=== PATIENT | female | born 1960 | race Caucasian/White ===

== ENCOUNTER 2020-08-21 17:15 | Outpatient (CLI) | payer SELFPAY | END 2020-08-21 17:16 | disposition left against medical advice (07) | LOC: EMS 17:15 | DX: H53.9 Unspecified visual disturbance (principal); R51.9 Headache, unspecified; M54.2 Cervicalgia ==

== ENCOUNTER 2020-09-21 | Outpatient (CLI) | payer MEDICAID | END 2020-09-21 19:57 | disposition EMS.NT | DX: R00.2 Palpitations (principal) ==

== ENCOUNTER 2020-09-25 02:35 | Outpatient (CLI) | payer MEDICAID | END 2020-09-25 02:36 | disposition EMS.NT | LOC: EMS 02:35 | DX: R06.00 Dyspnea, unspecified (principal); F41.9 Anxiety disorder, unspecified ==

== ENCOUNTER 2020-10-09 | Outpatient (CLI) | payer MEDICAID | END 2020-10-09 11:40 | disposition EMS.NT | DX: R55 Syncope and collapse (principal) ==

== ENCOUNTER 2021-01-04 13:30 | Outpatient (CLI) | payer MEDICAID | END 2021-01-04 13:31 | disposition critical access hospital (66) | LOC: EMS 13:30 | DX: R06.02 Shortness of breath (principal); R42 Dizziness and giddiness | CPT/HCPCS: A0425; A0427; A0999 ==

== ENCOUNTER 2021-01-04 14:36 | Observation (INO) | payer MEDICAID ==
[2021-01-04] MEDS ORDERED: diltiaZEM INJ 5 MG/ML VIAL IVP STA (15:08)
[2021-01-04 15:18] LABS: EOSINOPHILS % (AUTO) 2.2 %; LYMPHOCYTES # (AUTO) 0.7 10^3/uL (1.5-3.5); LYMPHOCYTES % (AUTO) 39.1 %; MEAN CORPUSCULAR HEMOGLOBIN 34.2 pg (27.0-31.0); MEAN CORPUSCULAR HGB CONC 37.7 g/dL (32.0-36.0); MEAN CORPUSCULAR VOLUME 90.8 fL (81.0-99.0); MEAN PLATELET VOLUME 11.7 fL (7.9-10.8); MONOCYTES # (AUTO) 0.3 10^3/uL (0.0-1.0); MONOCYTES % (AUTO) 14.1 %; NEUTROPHILS # (AUTO) 0.8 10^3/uL (1.5-6.6); NEUTROPHILS % (AUTO) 44.6 %; PLT - PLATELET COUNT 132 10^3/uL (130-450); RED BLOOD COUNT 1.84 10^6/uL (4.20-5.40)
[2021-01-04 15:21] LABS: HCT - HEMATOCRIT 16.7 % (37.0-47.0); WHITE BLOOD COUNT 1.8 x10^3/uL (4.8-10.8)
[2021-01-04 15:24] LABS: HGB - HEMOGLOBIN 6.3 g/dL (12.0-16.0)
--- NOTE | 2021-01-04 15:32 | ED Physician Documentation ---
History of Present Illness - Stated complaint Stated Complaint: SOA - Chief complaint Chief Complaint: Cardiac - Additonal information Additional information: 60-year-old female presents to the emergency department for evaluation of dyspnea, chest pain concerns that her atrial fibrillation is out of control. She has an unfortunate history of a glioblastoma s/p craniotomy in August 2020. She had been undergoing chemotherapy and radiation which was stopped in early November 2020. She has been pancytopenic since early november but developed neuropenia last week. She reports that her oncologist has ordered Neupogen which will be delivered to her home tomorrow for her to start taking. Over the last few days that she has had a very low-grade temperature elevation of 99.1. She feels short of breath with exertion. she does endorse near syncope last week when walking. She denies any cough, abdominal pain vomiting diarrhea or dysuria. Due to the pancytopenia she is on 3 times weekly Bactrim. denies melena or hematochezia She does have a longstanding history of atrial fibrillation for the last 25 years. She takes a daily aspirin. Saw her coater helper last week and he did not recommend systemic anticoagulation. She is not anticoagulated otherwise. She is on diltiazem 30 mg twice daily for rate control. No history of stroke. pmh: atrial fibrillation, anxiety, glioblastoma s/p resection august 2020 Oncology MD: Dr. Christian castro ([facility]) Cardiology: Dr. Maya with [facility] [employer] systems Review of Systems Constitutional: denies: Fever, Chills Eyes: reports: Reviewed and negative Ears: reports: Reviewed and negative Nose: reports: Reviewed and negative Cardiac: reports: Chest pain / pressure, Palpitations. denies: Pedal edema, Calf pain Respiratory: reports: Dyspnea. denies: Cough, Hemoptysis, Wheezing GI: denies: Abdominal Pain, Nausea, Vomiting : denies: Dysuria, Frequency, Hesitancy Skin: denies: Rash, Lesions, Abrasion (s) Musculoskeletal: denies: Neck pain, Back pain Neurologic: denies: Generalized weakness PD PAST MEDICAL HISTORY - Present Medications Home Medications: Ambulatory Orders Medication Instructions Recorded Confirmed Acyclovir 400 mg PO BID 01/04/21 LORazepam [Ativan] 0.5 mg PO DAILY PRN 01/04/21 Metoclopramide [Reglan] 10 mg PO Q6H PRN 01/04/21 Sulfamethox/Trimeth 800/160 1 tab PO MOWEFR 01/04/21 [Bactrim Ds] diltiaZEM [Cardizem] 30 mg PO QID 01/04/21 lamoTRIgine [LaMICtal] 200 mg PO DAILY 01/04/21 - Allergies Allergies/Adverse Reactions: Allergies Allergy/AdvReac Type Severity Reaction Status Date / Time codeine Allergy Unknown Verified 01/04/21 14:48 PD ED PE EXPANDED - General General: Alert, No acute distress - Neck Neck: Supple w/out meningeal sx. No: Adenopathy - Cardiac Cardiac: Irregularly irregular, Radial strong equal, Pedal strong equal, Cap refill < 2 sec. No: Murmur Present - Respiratory Respiratory: Clear to ausultation radha. No: Distress, Labored - Abdomen Abdomen: Normal Bowel sounds. No: Tender to palpation - Derm Derm: Normal color, Warm and dry. No: Rash - Neuro Neuro: Alert and Oriented X 3, CNII-XII intact - GCS Eye Opening: Spontaneous Motor: Obeys Commands Verbal: Oriented Total: 15 Results - Vitals Vitals: Vital Signs - 24 hr 01/04/21 01/04/21 01/04/21 14:48 15:00 15:40 Temperature 36.6 C Heart Rate 122 H 123 H 101 H Respiratory 16 20 23 Rate Blood Pressure 114/76 110/94 H 120/63 O2 Saturation 100 100 97 01/04/21 16:00 Temperature Heart Rate 122 H Respiratory 21 Rate Blood Pressure 108/75 O2 Saturation 100 Oxygen O2 Source Room air - EKG (time done) 1441 Rate: Rate (enter#) (103) Rhythm: Atrial fibrillation Intervals: Prolonged QT QRS: Normal, Low voltage Ischemia: Normal ST segments Compare to prior EKG: Old EKG unavailable Computer interpretation: Agree with computer - Labs Labs: Laboratory Tests 01/04/21 01/04/21 01/04/21 15:00 15:00 15:00 WBC 1.8 L* RBC 1.84 L Hgb 6.3 L* Hct 16.7 L* MCV 90.8 MCH 34.2 H MCHC 37.7 H RDW 12.0 Plt Count 132 MPV 11.7 H Neut # (Auto) 0.8 L Lymph # (Auto) 0.7 L [place] # (Auto) 0.3 Eos # (Auto) 0.0 Baso # (Auto) 0.0 Absolute Nucleated RBC 0.00 Band Neuts % (Manual) Not Reportable Abnorm Lymph % (Manual) Not Reportable Nucleated RBC % 0.0 Neutrophils # (Manual) Not Reportable Lymphocytes # (Manual) Not Reportable Monocytes # (Manual) Not Reportable Eosinophils # (Manual) Not Reportable Basophils # (Manual) Not Reportable Differential Comment MANUAL=AUTO DIFF Platelet Morphology NORMAL APPEARANCE RBC Morph Micro Appear 2+ HYPOCHROMASIA Sodium 139 Potassium 4.0 Chloride 106 Carbon Dioxide 22 Anion Gap 11.0 BUN 18 Creatinine 0.9 Estimated GFR (MDRD) 64 L Glucose 108 H Lactic Acid Calcium 8.7 Total Bilirubin 1.0 AST 40 ALT 82 H Alkaline Phosphatase 62 Troponin I High Sens < 2.3 L Total Protein 6.7 Albumin 3.7 Globulin 3.0 Albumin/Globulin Ratio 1.2 Lipase 51 TSH Urine Color Urine Clarity Urine pH Ur Specific Carnegie Urine Protein Urine Glucose (UA) Urine Ketones Urine Occult Blood Urine Nitrite Urine Bilirubin Urine Urobilinogen Ur Leukocyte Esterase Urine RBC Urine WBC Ur Squamous Epith Cells Urine Bacteria Urine Culture Comments Blood Type Antibody Screen Crossmatch IS Only 01/04/21 01/04/21 01/04/21 15:00 15:00 15:00 WBC RBC Hgb Hct MCV MCH MCHC RDW Plt Count MPV Neut # (Auto) Lymph # (Auto) [place] # (Auto) Eos # (Auto) Baso # (Auto) Absolute Nucleated RBC Band Neuts % (Manual) Abnorm Lymph % (Manual) Nucleated RBC % Neutrophils # (Manual) Lymphocytes # (Manual) Monocytes # (Manual) Eosinophils # (Manual) Basophils # (Manual) Differential Comment Platelet Morphology RBC Morph Micro Appear Sodium Potassium Chloride Carbon Dioxide Anion Gap BUN Creatinine Estimated GFR (MDRD) Glucose Lactic Acid 1.1 Calcium Total Bilirubin AST ALT Alkaline Phosphatase Troponin I High Sens Total Protein Albumin Globulin Albumin/Globulin Ratio Lipase TSH 0.82 Urine Color Urine Clarity Urine pH Ur Specific Carnegie Urine Protein Urine Glucose (UA) Urine Ketones Urine Occult Blood Urine Nitrite Urine Bilirubin Urine Urobilinogen Ur Leukocyte Esterase Urine RBC Urine WBC Ur Squamous Epith Cells Urine Bacteria Urine Culture Comments Blood Type B POSITIVE Antibody Screen NEGATIVE Crossmatch IS Only See Detail 01/04/21 15:37 WBC RBC Hgb Hct MCV MCH MCHC RDW Plt Count MPV Neut # (Auto) Lymph # (Auto) [place] # (Auto) Eos # (Auto) Baso # (Auto) Absolute Nucleated RBC Band Neuts % (Manual) Abnorm Lymph % (Manual) Nucleated RBC % Neutrophils # (Manual) Lymphocytes # (Manual) Monocytes # (Manual) Eosinophils # (Manual) Basophils # (Manual) Differential Comment Platelet Morphology RBC Morph Micro Appear Sodium Potassium Chloride Carbon Dioxide Anion Gap BUN Creatinine Estimated GFR (MDRD) Glucose Lactic Acid Calcium Total Bilirubin AST ALT Alkaline Phosphatase Troponin I High Sens Total Protein Albumin Globulin Albumin/Globulin Ratio Lipase TSH Urine Color YELLOW Urine Clarity CLEAR Urine pH 5.5 Ur Specific Carnegie 1.020 Urine Protein NEGATIVE Urine Glucose (UA) NEGATIVE Urine Ketones NEGATIVE Urine Occult Blood NEGATIVE Urine Nitrite NEGATIVE Urine Bilirubin NEGATIVE Urine Urobilinogen 0.2 (NORMAL) Ur Leukocyte Esterase NEGATIVE Urine RBC 0-5 Urine WBC 0-3 Ur Squamous Epith Cells RARE Squamous Urine Bacteria None Seen Urine Culture Comments NOT INDICATED Blood Type Antibody Screen Crossmatch IS Only - Rads (name of study) CXR Radiology: Final report received (No acute cardiopulmonary process) PD MEDICAL DECISION MAKING - ED course Complexity details: reviewed results, re-evaluated patient, d/w patient ED course: 60-year-old female who has a history of atrial fibrillation rate controlled typically on diltiazem presents to the emergency department with increasing exertional dyspnea and near syncope over the last week. This is in the setting of a history of recently diagnosed glioblastoma status post resection chemotherapy and radiation. She is pancytopenic with a wbc of 1.8 Her oncologist has ordered Neupogen to be delivered to her house tomorrow which she will self inject. Today on presentation she has atrial fibrillation with a rate that goes into the 130s and 140s with exertion. High sensitivity trop today is negative. Initially given diltiazem here in the ED for her HR in the 130 which dropped it to the 110's. Screening labs do show a persistent anemia with a hemoglobin of 6.3 and wbc of 1.8. I did discuss this case with her oncology office. They recommended that we proceed with the blood cultures and requested 1 unit PRBC infusion. I have discussed the risks and benefits of blood transfusion with the patient and she agrees to proceed. Consent signed Given the symptomatic anemia and near syncope patient was presented to [facility] for observation admit and completion of the red blood cell infusion. Departure - Departure Disposition: ED Place in Observation Clinical Impression: Pancytopenia, acquired, Signs and symptoms of anemia Atrial fibrillation Qualifiers: Atrial fibrillation type: longstanding persistent Qualified Code(s): I48.11 - Longstanding persistent atrial fibrillation Neutropenia Qualifiers: Neutropenia type: unspecified Qualified Code(s): D70.9 - Neutropenia, unspecified
[2021-01-04 15:40] LABS: ALBUMIN 3.7 g/dL (3.2-5.5); ALBUMIN/GLOBULIN RATIO 1.2 (1.0-2.2); CALCIUM 8.7 mg/dL (8.5-10.3); CREATININE 0.9 mg/dL (0.4-1.0); TOTAL PROTEIN 6.7 g/dL (6.7-8.2)
[2021-01-04 15:46] LABS: BILIRUBIN,URINE NEGATIVE (NEGATIVE); GLUCOSE, URINE (UA) NEGATIVE (NEGATIVE); KETONES,URINE (UA) NEGATIVE (NEGATIVE); LEUKOCYTE ESTERASE, URINE NEGATIVE (NEGATIVE); NITRITE,URINE NEGATIVE (NEGATIVE); OCCULT BLOOD,URINE NEGATIVE (NEGATIVE); PH,URINE 5.5 PH (5.0-7.5); PROTEIN,URINE NEGATIVE (NEGATIVE); UROBILINOGEN,URINE 0.2 (NORMAL) E.U./dL (NORMAL)
[2021-01-04 15:51] LABS: CLARITY,URINE CLEAR (CLEAR); WBC,URINE 0-3 /HPF (0-5)
[2021-01-04 15:52] LABS: BACTERIA,URINE None Seen /HPF (None Seen); RBC,URINE 0-5 /HPF (0-5); SQUAMOUS EPITHELIAL CELL,UR RARE Squamous (<= Few)
[2021-01-04] MEDS ORDERED: ONDANSETRON ODT 4 MG TABLET TL PRN (16:03)
[2021-01-04] MEDS ORDERED: ONDANSETRON 4 MG/2 ML VIAL IVP PRN (16:03)
[2021-01-04] MEDS ORDERED: ACETAMINOPHEN 325 MG TABLET PO PRN (16:03)
[2021-01-04] MEDS ORDERED: SODIUM CHLORIDE FLUSH 0.9% 10 ML SYRINGE IVP PRN (16:03)
[2021-01-04] MEDS ORDERED: oxyCODONE 5 MG TABLET PO PRN (16:03)
--- NOTE | 2021-01-04 16:07 | XRAY Report ---
PROCEDURE: Chest 1 View X-Ray INDICATIONS: Chest Pain TECHNIQUE: One view of the chest was acquired. COMPARISON: FINDINGS: Surgical changes and devices: None. Lungs and pleura: No pleural effusions or pneumothorax. Lungs are clear. Mediastinum: Mediastinal contours appear normal. Heart size is normal. Bones and chest wall: No suspicious bony lesions. Overlying soft tissues appear unremarkable. IMPRESSION: Normal for age, source of current symptoms is not found. Reviewed by: Lance Espinal MD on 01/04/2021 4:05 PM PDT Approved by: Lance Espinal MD on 01/04/2021 4:05 PM PDT Station ID: [id number]
--- NOTE | 2021-01-04 16:09 | HISTORY & PHYSICAL EXAMINATION ---
Chief Complaint - Chief Complaint Chief Complaint: shortness of breath and fast heart rate History of Present Illness - Admitted From Admitted From:: home - History Obtained From Records Reviewed: [facility] History obtained from: Eric HINES and patient Exam Limitations: none - History of Present Illness HPI Comment/Other: This is an unfortunate 60-year-old female who has a glioblastoma and is undergoing therapy. She is already had a craniotomy in August of this year and is being treated by Dr. Bhatia at [facility] with chemotherapy and radiation. That was completed November 2020. She also has a history of chronic atrial fibrillation and anxiety. Her section leader is Dr. Maya with [employer]. She developed low cell counts in November and she is supposed to start Neupogen starting tomorrow. But in the last few days she has been exhausted, fatigued, but denies fever and chills. However temperature has been 99.1 at times. Poor appetite. Any limited exertion causes her to feel exhausted and short of breath. She denies any sore throat, eustachian tube dysfunction, cough, chest congestion. She has had no change in abdominal status. There is been no change in her bowels. There is no urgency of urine. No frequency. No dysuria. She has noticed that her heart rate is getting faster and faster. Her section leader put a monitor on her. She says she has been pushing the button numerous times a day to download the data to his office and has not found out what is going on. She has some chest pressure that is a 2 out of a 10 with this. Over the central part of her chest. Nonradiating. No nausea or diaphoresis with this.It gets fast and then will not slow down when she stops activity. She came to the emergency room with the feeling of a fast heart rate, the shortness of breath with exertion. She is very anxious. Tearful. Keeps on asking for reassurance that "I am not going to ". She keeps on asking about the overall prognosis, treatment, and response rate for glioblastoma. She feels like she is lost in the system and no one is answering her questions in a concrete way. When she has expressed this fear to her oncology office and asked them "am I going to ", the responses "were all going to ". She was seen by DONNY Reyes. Temperature was 36.6. Heart rate 122. Respirations 16 blood pressure 114/76 with an O2 sat of 100. She was an alert oriented female who had no meningeal signs. Clear lungs. A benign abdomen. She had a fast irregularly irregular heart rate. White cell count was 1.8. Hemoglobin 6.3. Hematocrit 16.7. CMP was normal. Troponin was normal. Plan is to place her in observation. Transfuser. Hopefully she will be above 7 to then be able to be discharged home. 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 Mom at 69 of CHF. 3 brothers. Oldest brother had a heart attack. Middle brother is healthy. Youngest brother of a heart attack. She does not have any children Living arrangement: At home Living Situation: With spouse/s.o. Social History Notes: She is from [place]. Grew up there. She says that she had a great life. Worked for a [employer] for 20 years and was "living the dream". Covid happened and she lost her job in November 2019. She has been 4-1/2 years and still considers of the newlywed. She and her moved to [facility] and he works at [employer]. She smoked 1 or 2 cigarettes when she was very young but never smoked on a regular basis. She has no history of alcohol or recreational substance abuse. - Substance History Use: Uses substance without health or social issues: NONE Abuse: Recurrent use of substance despite neg consequences: NONE Dependence: Experiences withdrawal or developed tolerances: NONE Meds/Allgy - Home Medications Home Medications: Ambulatory Orders Medication Instructions Recorded Confirmed Aspirin [Aspirin EC] 81 mg PO DAILY 01/04/21 01/04/21 LORazepam [Ativan] 0.5 mg PO DAILY PRN 01/04/21 01/04/21 Sulfamethox/Trimeth 800/160 1 tab PO MOWEFR 01/04/21 01/04/21 [Bactrim Ds] diltiaZEM [Cardizem] 30 mg PO QID 01/04/21 01/04/21 - Allergies Allergies/Adverse Reactions: Allergies Allergy/AdvReac Type Severity Reaction Status Date / Time codeine Allergy Unknown Verified 01/04/21 14:48 Review of Systems - Constitutional Constitutional: reports: Fatigue, Chills, Malaise, Weakness, Poor appetite - Eyes Eyes: reports: Blurred vision. denies: Pain - Ears, Nose & Throat Ears, Nose & Throat: denies: Hearing loss, Hearing aids, Tinnitus, Sore throat, Hoarseness - Cardiovascular Cariovascular: reports: Irregular heart rate, Palpitations, Chest pain, Lightheadedness, Exertional dyspnea, Decr. exercise tolerance. denies: Edema, Syncope - Respiratory Respiratory: reports: SOB with exertion. denies: Cough, Sputum production, Wheezing, Snoring, Orthopnea, SOB at rest - Gastrointestinal Gastrointestinal: denies: Abdominal pain, Abdominal distention, Constipation, Diarrhea, Rectal bleeding, Vomiting - Genitourinary Genitourinary: denies: Dysuria, Frequency, Urgency, Hematuria, Flank pain - Musculoskeletal Musculoskeletal: reports: Muscle aches. denies: Muscle pain, Back pain, Stiffness, Joint pain - Integumentary Integumentary: denies: Rash, Pruritis, Lesions - Neurological Neurological: reports: General weakness, Memory problems. denies: Focal weakness, Headache, Dizziness, Pre-existing deficit - Psychiatric Psychiatric: reports: Depression, Anxiety (She is so scared. She does not want to . She feels like this is all happening too fast.) - Endocrine Endocrine: denies: Polyuria, Polydypsia, Polyphagia - Hematologic/Lymphatic Hematologic/Lymphatic: reports: Anemia (As far she was concerned, she was told that her "blood counts look great". So being anemic is a surprise to her.). 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 She was told to be on a seizure medication for prophylactic treatment of seizures but she has never filled it because she is so tired of being on drugs and having side effects. She still able to dress herself, feed herself. 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 But almost everything is been taken over by her because she is so overwhelmed, tearful, and anxious. Exam - Vital Signs Reviewed Vital Signs: Yes Vital Signs: Vital Signs x48h Temp Pulse Resp BP Pulse Ox 01/04/21 15:40 101 H 23 120/63 97 01/04/21 15:00 123 H 20 110/94 H 100 01/04/21 14:48 36.6 C 122 H 16 114/76 100 - Physical Exam General Appearance: positive: No acute distress, Alert, Moderate distress ( Very tearful. Fast, pressured speech. Repetitive questions.), Other (Pale, fatigued appearing 5 foot 5 inch female who weighs 70 kg) Eyes Bilateral: positive: PERRL, EOMI. negative: Conjunctivae nml (Pale) ENT: positive: Dry mucous membranes Neck: positive: No JVD. negative: Stiff neck, Carotid bruit, Swelling/bruising Respiratory: positive: No respiratory distress. negative: Wheezes, Rales, Rhonchi Cardiovascular: positive: Irregularly irregular, Tachycardia, Systolic murmur. negative: Gallop/S4, Friction rub Peripheral Pulses: positive: 1+ Abdomen: positive: Non-tender, No organomegaly, Nml bowel sounds, No distention Skin: positive: Warm, Dry, Pallor Extremities: positive: Full ROM, Pedal edema Neurologic/Psychiatric: positive: Oriented x3, CN's nml (2-12), Motor nml, Sensation nml Conclusion/Plan - Problem List (1) Dyspnea on minimal exertion Conclusion/Plan: Due to rapid atrial fibrillation and her anemia. Plan: Observation status requested for completion of her transfusion. Control her heart rate check troponin (2) Anemia due to chemotherapy Conclusion/Plan: Transfusion. She is worried that the transfusion will not let her get Neupogen. But I reassured her that Start Neupogen tomorrow. (3) Atrial fibrillation with rapid ventricular response Conclusion/Plan: She is not a candidate for anticoagulation. At this point in time aiming for rate control. Hopefully when she has received IV fluids, transfusion, the stress on her heart lung pump will be less and her dyspnea and exertion will improve. She took her own Cardizem pill at 1900. She takes 30 mg every 8 hours. I have asked her not to take pills out of her purse. She tells me that the pharmacist here, Avel Galloway, is her best friend and he would not mind. I gently asked her not to do it because I mind. So I will order her Cardizem through the pharmacy. (4) Anxiety about dying Conclusion/Plan: Moderate anxiety. In the time she was talking about her fears of blood transfusion, dying, the atrial fibrillation there is rapidfire speech. Increasing tachypnea. Increasing chest pressure. I had to ask her to please stop talking, take a deep breath, calm herself and she felt much better. She is on a benzodiazepine of Ativan half a milligram daily. Will order half a milligram at night and tomorrow morning. - Lab Results Lab results reviewed: Yes Fish Bones: 01/04/21 15:00 01/04/21 15:00 - EKG Results EKG Interpreted Independently: No EKG Comparison: No prior EKG Core Measures - Anticipated LOS I expect patient to be DC'd or transferred within 96 hours.: Yes - DVT/VTE - Prophylaxis VTE/DVT Device ordered at admit?: Yes
[2021-01-04 17:01] LABS: PLATELET MORPHOLOGY NORMAL APPEARANCE (NORMAL)
[2021-01-04 17:05] LABS: DIFFERENTIAL COMMENT MANUAL=AUTO DIFF
--- NOTE | 2021-01-04 17:44 | PHARMACY PROGRESS NOTE ---
- Best Possible Medication History Admit Date and Time: 01/04/21 1605 Processed by: Pharmacy Medication History completed: Yes Patient Interview: Completed Secondary Source(s): Written medication list, Physician records, Pharmacy records, Insurance records (PATIENT ABLE TO CONFIRM HOME MEDICATIONS. PATIENT REPORTS SHE HAS NOT STARTED ON ATIVAN OR LAMICTAL. ) As the person ultimately responsible for medication therapy, providers are able to order a medication from an existing home medication list in [facility] via the "Reconcile Routine" prior to Confirmation of that medication by legal support manager. Such practice is discouraged except when the physician, in their clinical judgment, deems that a medical need exists for a medication without regard to previous use.
[2021-01-04 17:48] LABS: B. PARAPERTUSSIS- RESP PCR PAN NOT DETECTED; B. PERTUSSIS- RESP PCR PANEL NOT DETECTED; C. PNEUMONIAE- RESP PCR PANEL NOT DETECTED; CORONAVIRUS 229E-RESP PCR NOT DETECTED; CORONAVIRUS HKU1-RESP PCR NOT DETECTED; CORONAVIRUS NL63-RESP PCR NOT DETECTED; CORONAVIRUS OC43-RESP PCR NOT DETECTED; HUMAN METAPNEUMOVIRUS NOT DETECTED; INFLUENZA A- RESP PCR PANEL NOT DETECTED; INFLUENZA B - RESP PCR PANEL NOT DETECTED; M. PNEUMONIAE- RESP PCR PANEL NOT DETECTED; PARAINFLUENZA VIRUS 1 NOT DETECTED; PARAINFLUENZA VIRUS 2 NOT DETECTED; PARAINFLUENZA VIRUS 3 NOT DETECTED; PARAINFLUENZA VIRUS 4 NOT DETECTED; RHINOVIRUS/ENTEROVIRUS NOT DETECTED; RSV- RESP PCR PANEL NOT DETECTED; SARS-CoV-2 -RESP PCR PANEL NOT DETECTED
[2021-01-04] MEDS: SODIUM CHLORIDE FLUSH 0.9% 10 ML SYRINGE IVP SCH ×2 (18:59→23:57)
[2021-01-04] MEDS ORDERED: LORazepam 0.5 MG TABLET PO PRN (19:11)
[2021-01-04] MEDS ORDERED: SULFAMETH/TRIMETH DS 800/160 MG TABLET PO STA (21:27)
[2021-01-04] MEDS ORDERED: NON FORMULARY MED PO SCH (22:00)
[2021-01-04] MEDS ORDERED: DILTIAZEM 30 MG PO PRN (23:50)
[2021-01-05 00:20] LABS: HCT - HEMATOCRIT 21.9 % (37.0-47.0); MEAN CORPUSCULAR HEMOGLOBIN 32.4 pg (27.0-31.0); MEAN CORPUSCULAR HGB CONC 36.5 g/dL (32.0-36.0); MEAN CORPUSCULAR VOLUME 88.7 fL (81.0-99.0); RED BLOOD COUNT 2.47 10^6/uL (4.20-5.40); RED CELL DISTRIBUTION WIDTH 13.2 % (12.0-15.0)
[2021-01-05 05:23] LABS: EOSINOPHILS % (AUTO) 3.9 %; HCT - HEMATOCRIT 21.2 % (37.0-47.0); HGB - HEMOGLOBIN 7.8 g/dL (12.0-16.0); LYMPHOCYTES % (AUTO) 36.8 %; MEAN CORPUSCULAR HEMOGLOBIN 32.5 pg (27.0-31.0); MEAN CORPUSCULAR HGB CONC 36.8 g/dL (32.0-36.0); MEAN CORPUSCULAR VOLUME 88.3 fL (81.0-99.0); MEAN PLATELET VOLUME 11.1 fL (7.9-10.8); MONOCYTES % (AUTO) 14.2 %; NEUTROPHILS % (AUTO) 44.5 %; PLT - PLATELET COUNT 130 10^3/uL (130-450); RED CELL DISTRIBUTION WIDTH 13.6 % (12.0-15.0)
[2021-01-05 05:32] LABS: WHITE BLOOD COUNT 1.6 x10^3/uL (4.8-10.8)
[2021-01-05 05:33] LABS: ABNORMAL LYMPHS % (MANUAL) 0 %
[2021-01-05 05:55] LABS: BAND NEUTROPHILS % (MANUAL) 1 %; DIFFERENTIAL COMMENT MANUAL DIFFERENTIAL; LYMPHOCYTES # (MANUAL) 0.8 10^3/uL (1.5-3.5); LYMPHOCYTES % (MANUAL) 48 %; NEUTROPHILS # (MANUAL) 0.8 10^3/uL (1.5-6.6); PLATELET ESTIMATE, MANUAL NORMAL (130-450,000) (NORMAL); RBC MORPHOLOGY (MULTIPLE) NORMAL APPEARANCE (NORMAL)
--- NOTE | 2021-01-05 08:54 | Discharge Plan ---
Discharge Plan Problem Reviewed?: Yes Disposition: Home, Self Care Condition: Fair Diet: Regular Activity Restrictions: Activity as Tolerated Shower Restrictions: No Driving Restrictions: Yes (no driving until takes seizure meds regularly) Health Concerns: You were admitted into the hospital because of a very fast heart rate that was scaring you tremendously. We found you to have your chronic atrial fibrillation. Your rate was sometimes up over 100 but never dangerously high. However, subjectively, you felt that is a very fast heart rate given your chest pressure. In evaluating why your atrial fibrillation could be uncontrolled, we found you to have anemia induced from your chemotherapy. A normal amount of blood in a woman is about 12 g of hemoglobin. You came in at 6.3. We transfused you 1 unit of blood and her hemoglobin has gone up to 7.88.0. You are supposed to start Neupogen today. Neupogen affects only your white cell count. Your white cell count is 1.8-2.0. Normal white cell count is 4.8. So you are low. You and your oncologist will discuss if you want to take your Neupogen or not. Plan of Treatment: 1. Get regularly scheduled lab work and review with you. If you drop below 7 g of hemoglobin you are a candidate for transfusion. Follow-up with your oncologist about whether you are going to get Neupogen or not Care Goals: Your fiercest and greatest goal is to survive glioblastoma. We wish you all the best with this. You have asked us to keep you in your prayers and we well. Assessment: Patient will follow through with her oncologist for further care. No Smoking: If you smoke, Please STOP! Call for help. Follow-up with: Jose Wilder MD [Primary Care Provider] -
--- NOTE | 2021-01-05 09:03 | DISCHARGE SUMMARY ---
Discharge Summary Admit Date: 01/04/21 Discharge Date: 01/05/21 Discharging Provider: Idalmis Dahl MD Primary Care Provider: Talat Wilder MD Code Status: Attempt Resuscitation Condition at Discharge: Fair Discharge Disposition: 01 Home, Self Care - DIAGNOSES Discharge Diagnoses with Status of Each Condition: 1. Dyspnea on minimal exertion 2. Anemia due to chemotherapy 3. Atrial fibrillation with RVR 4. Anxiety about dying, severe - HPI History of Present Illness: This is an unfortunate 60-year-old female who has a glioblastoma and is undergoing therapy. She is already had a craniotomy in August of this year and is being treated by Dr. Bhatia at [facility] with chemotherapy and radiation. That was completed November 2020. She also has a history of chronic atrial fibrillation and anxiety. Her solar sales assessor is Dr. Maya with [facility]. She developed low cell counts in November and she is supposed to start Neupogen starting tomorrow. But in the last few days she has been exhausted, fatigued, but denies fever and chills. However temperature has been 99.1 at times. Poor appetite. Any limited exertion causes her to feel exhausted and short of breath. She denies any sore throat, eustachian tube dysfunction, cough, chest congestion. She has had no change in abdominal status. There is been no change in her bowels. There is no urgency of urine. No frequency. No dysuria. She has noticed that her heart rate is getting faster and faster. Her solar sales assessor put a monitor on her. She says she has been pushing the button numerous times a day to download the data to his office and has not found out what is going on. She has some chest pressure that is a 2 out of a 10 with this. Over the central part of her chest. Nonradiating. No nausea or diaphoresis with this.It gets fast and then will not slow down when she stops activity. She came to the emergency room with the feeling of a fast heart rate, the shortness of breath with exertion. She is very anxious. Tearful. Keeps on asking for reassurance that "I am not going to ". She keeps on asking about the overall prognosis, treatment, and response rate for glioblastoma. She feels like she is lost in the system and no one is answering her questions in a concrete way. When she has expressed this fear to her oncology office and asked them "am I going to ", the responses "were all going to ". She was seen by DONNY Reyes. Temperature was 36.6. Heart rate 122. Respirations 16 blood pressure 114/76 with an O2 sat of 100. She was an alert oriented female who had no meningeal signs. Clear lungs. A benign abdomen. She had a fast irregularly irregular heart rate. White cell count was 1.8. Hemoglobin 6.3. Hematocrit 16.7. CMP was normal. Troponin was normal. Plan is to place her in observation. Transfuser. Hopefully she will be above 7 to then be able to be discharged home. - Past Medical History Cardiovascular: reports: Atrial fibrillation Respiratory: reports: None Neuro: reports: Other (Glioblastoma multiform a, craniotomy, chemo, radiation.) Endocrine/Autoimmune: reports: None GI: reports: None FILLER FEEDER: reports: Other () : reports: None HEENT: reports: None Psych: reports: Depression, Anxiety Musculoskeletal: reports: None Derm: reports: None MRSA Hx?: No - Past Surgical History Neuro: reports: Craniotomy - CONSULTS | PROCEDURES Procedures: Chest x-ray is normal for age, no acute cardiopulmonary process Transfusion of 1 unit of packed cells - HOSPITAL COURSE Hospital Course: Patient required quite a bit of emotional support. Severe anxiety with fast, pressured speech. Repetitive questions. And her anxiety and fear she would forget the answers and we asked the questions a few minutes later. Her biggest fear is dying. She keeps on wanting to be reassured that she is not going to di e of the glioblastoma or its recurrence. She is already seeing a counselor. She reluctantly admits that she tries to call him but does not really follow through on his advice. She is also going to be seeking a second opinion with [facility] as she is hoping to find any treatment plan that might prolong her life. She tolerated 1 unit of blood well. She kept on complaining of atrial fibrillation. We reminded her that her atrial fibrillation was a chronic condition, not new. In seeking reassurance, she repetitively requested telemetry monitoring. As such telemetry monitoring was done and showed only atrial fibrillation with his highest heart rate being 108. She is discharged in stable condition. Temperature is 36.7. Heart rate is 81- 101. Pressure 113/74. Respirations 16. 100% on room air. She is 5 foot 5 inches tall and weighs 70 kg. Still very anxious woman on the morning of discharge. She asked about the Neupogen. She receives it today. Wants to know that it is not contraindicated in someone who has anemia. I told her it was not. She then tells me that her neuro oncologist stated that she does not have to take this drug. I explained that that is going to be between her and the neuro oncologist and not up to us. Lungs are clear. Irregular rate and rhythm. Abdomen soft. No respiratory distress. Moderate emotional distress. There were approximately 5 more conversations had with this patient between decision to discharge and discharge. She is still very anxious about her atrial fibrillation, sense of palpitations, and orthostatic dizziness. She began having tachypnea and sense of impending doom with heavy chest pain and shortness of breath. Pulse was 98 with this and BP 110/68. No diaphresis. Tearful. She received a 500 cc bolus of fluids because her blood pressure was 95/62 laying down. 103/54 sitting. 79/50 standing. Heart rate went from 94-124 with this. After the bolus she felt much better. On the basis of the orthostatic hypotension and subjective sense of tachycardia, I did offer her 1 more unit of blood. She brought her on the phone. Options discussed: 1. Keep her another day and type and cross/transfuse her for another unit of blood 2. Type and cross her today. Bring her back tomorrow for an elective transfusion of blood through the medical ambulatory clinic. 3. No transfusion. Take vitamins. Take her Neupogen. And see if over time her anemia gradually improved without needing more transfusion. 4. If she is discharged home without a transfusion, she can always return to the emergency room if her sense of orthostatic dizziness, tachycardia, and anxiety are so severe that she needs to come back for evaluation. Of all of these options, she wanted to go for option #3. Her endorsed that decision. We have asked her to see her PCP to discuss future transfusions by option #2. To please see her solar sales assessor for rate control options. To resume her ASA and to take her Neupogen per her [place] instructions. Dariana left a message for Dr. Talat Wilder to give me a call @ [phone]. - ALLERGIES Allergies/Adverse Reactions: Allergies Allergy/AdvReac Type Severity Reaction Status Date / Time codeine Allergy Unknown Verified 01/04/21 14:48 - MEDICATIONS Home Medications: Ambulatory Orders Medication Instructions Recorded Confirmed Aspirin [Aspirin EC] 81 mg PO DAILY 01/04/21 01/04/21 LORazepam [Ativan] 0.5 mg PO DAILY PRN 01/04/21 01/04/21 Sulfamethox/Trimeth 800/160 1 tab PO MOWEFR 01/04/21 01/04/21 [Bactrim Ds] diltiaZEM [Cardizem] 30 mg PO QID 01/04/21 01/04/21 - LABS Result Diagrams: 01/05/21 05:10 01/04/21 15:00
[2021-01-05] MEDS ORDERED: SODIUM CHLORIDE 0.9% 500 ML IV ONE (11:14)
[2021-01-05] MEDS: SODIUM CHLORIDE FLUSH 0.9% 10 ML SYRINGE IVP SCH (11:25)
[2021-01-05 13:41] VITALS: BP 101/71
== END 2021-01-05 12:45 | disposition home or self-care (01) ==
LOC: ED 14:36 → MS2 16:03
PROVIDERS: ADMIT Specialist; ATTEND Specialist
DX: D61.810 Antineoplastic chemotherapy induced pancytopenia (principal); T45.1X5A Adverse effect of antineoplastic and immunosuppressive drugs, initial encounter; I48.11 Longstanding persistent atrial fibrillation; C71.9 Malignant neoplasm of brain, unspecified; Q04.3 Other reduction deformities of brain; F41.9 Anxiety disorder, unspecified; F32.9 Major depressive disorder, single episode, unspecified; R56.9 Unspecified convulsions; T50.996A Underdosing of other drugs, medicaments and biological substances, initial encounter; Z20.822 Contact with and (suspected) exposure to COVID-19; Z92.21 Personal history of antineoplastic chemotherapy; Z92.3 Personal history of irradiation; Z79.82 Long term (current) use of aspirin; Z79.899 Other long term (current) drug therapy
CPT/HCPCS: 0202U; 36415; 36430; 71045; 80053; 81001; 83605; 83690; 84443; 84484; 85025; 85027; 86850; 86900; 86901; 86920; 87040; 93005; 96374; 99284; 99285; A9270; G0378; P9040; 87086

== ENCOUNTER 2022-03-05 05:52 | Outpatient (CLI) | payer MEDICAID | END 2022-03-05 05:53 | disposition critical access hospital (66) | LOC: EMS 05:52 | DX: R56.9 Unspecified convulsions (principal) | CPT/HCPCS: A0425; A0427; A0999 ==

== ENCOUNTER 2022-03-05 06:08 | Emergency (ER) | payer MEDICAID ==
[2022-03-05] MEDS ORDERED: SODIUM CHLORIDE 0.9% 1,000 ML IV STA (07:00)
[2022-03-05] MEDS ORDERED: KETOROLAC 15 MG/ML VIAL IVP STA (07:00)
[2022-03-05 07:14] LABS: EOSINOPHILS % (AUTO) 0.3 %; HGB - HEMOGLOBIN 13.2 g/dL (12.0-16.0); LYMPHOCYTES # (AUTO) 0.9 10^3/uL (1.5-3.5); LYMPHOCYTES % (AUTO) 29.8 %; MEAN CORPUSCULAR HEMOGLOBIN 35.7 pg (27.0-31.0); MEAN CORPUSCULAR HGB CONC 35.7 g/dL (32.0-36.0); MEAN PLATELET VOLUME 9.7 fL (7.9-10.8); MONOCYTES # (AUTO) 0.3 10^3/uL (0.0-1.0); NEUTROPHILS # (AUTO) 1.7 10^3/uL (1.5-6.6); NEUTROPHILS % (AUTO) 58.8 %; PLT - PLATELET COUNT 156 10^3/uL (130-450); RED CELL DISTRIBUTION WIDTH 12.9 % (12.0-15.0); WHITE BLOOD COUNT 2.9 x10^3/uL (4.8-10.8)
[2022-03-05 07:21] LABS: RBC MORPHOLOGY (MULTIPLE) 1+ ANISOCYTOSIS (NORMAL); SLIDE REVIEW? Indicated
[2022-03-05 07:26] LABS: ALBUMIN/GLOBULIN RATIO 1.4 (1.0-2.2); BILIRUBIN,TOTAL 0.9 mg/dL (0.2-1.0); CALCIUM 8.9 mg/dL (8.5-10.3); CREATININE 0.7 mg/dL (0.4-1.0); MAGNESIUM 2.1 mg/dL (1.7-2.8); POTASSIUM 3.8 mmol/L (3.5-5.0); TOTAL PROTEIN 6.8 g/dL (6.7-8.2)
--- NOTE | 2022-03-05 07:30 | ED Physician Documentation ---
History of Present Illness - Stated complaint Stated Complaint: SZ, BRAIN TUMOR - Chief complaint Chief Complaint: Neuro - Additonal information Additional information: Patient is a 61-year-old female presenting with chief complaint of seizure. woke this morning to find her experiencing tonic-clonic seizure activity. Patient amnestic to events. Positive tongue biting. Negative loss of Bowel or bladder control. Past medical significant for neuro glioblastoma status post surgical excision in 2020. Procedure was performed at [facility]. Currently follows with oncology at the [facility]. Denies head trauma, loss of consciousness, use of blood thinning medications. 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: Other () : None HEENT: None Psych: Depression, Anxiety Musculoskeletal: None Derm: None - Past Surgical History Past Surgical History: Yes Neuro: Craniotomy - Present Medications Home Medications: Ambulatory Orders Medication Instructions Recorded Confirmed Aspirin [Aspirin EC] 81 mg PO DAILY 01/04/21 01/04/21 LORazepam [Ativan] 0.5 mg PO DAILY PRN 01/04/21 01/04/21 Sulfamethox/Trimeth 800/160 1 tab PO MOWEFR 01/04/21 01/04/21 [Bactrim Ds] diltiaZEM [Cardizem] 30 mg PO QID 01/04/21 01/04/21 Levetiracetam [Keppra] 1,000 mg PO BID #30 tablet 03/05/22 - Allergies Allergies/Adverse Reactions: Allergies Allergy/AdvReac Type Severity Reaction Status Date / Time codeine Allergy Unknown Verified 03/05/22 06:21 - Social History Does the pt smoke?: No Smoking Status: Never smoker PD ED PE NORMAL - General General: No acute distress, Other (Postictal confusion) - HEENT HEENT: Atraumatic, PERRL, EOMI, Ears normal, Moist mucous membranes, Pharynx benign - Neck Neck: Supple, no meningeal sign, No bony TTP, No adenopathy, No JVD, No bruit - Cardiac Cardiac: RRR, No gallop - Respiratory Respiratory: No respiratory distress, Clear bilaterally - Abdomen Abdomen: Normal bowel sounds, Non tender - Female Female : Deferred - Rectal Rectal: Deferred - Derm Derm: Normal color - Extremities Extremities: No deformity - Neuro Neuro: manager forms 2-12 intact, No motor deficit, Normal speech - Psych Psych: Normal mood Results - Vitals Vitals: Vital Signs - 24 hr 03/05/22 03/05/22 03/05/22 06:16 10:20 14:00 Temperature 36.7 C Heart Rate 115 H 90 86 Respiratory 14 12 20 Rate Blood Pressure 110/81 H 106/94 H 122/81 H O2 Saturation 99 100 100 03/05/22 16:00 Temperature Heart Rate 90 Respiratory 14 Rate Blood Pressure 124/98 H O2 Saturation 99 Oxygen O2 Source Room air - Labs Labs: Laboratory Tests 03/05/22 03/05/22 03/05/22 07:10 07:10 14:50 WBC 2.9 L RBC 3.70 L Hgb 13.2 Hct 37.0 MCV 100.0 H MCH 35.7 H MCHC 35.7 RDW 12.9 Plt Count 156 MPV 9.7 Neut # (Auto) 1.7 Lymph # (Auto) 0.9 L Loup # (Auto) 0.3 Eos # (Auto) 0.0 Baso # (Auto) 0.0 Absolute Nucleated RBC 0.00 Nucleated RBC % 0.0 Manual Slide Review Indicated RBC Morph Micro Appear 1+ ANISOCYTOSIS Sodium 139 Potassium 3.8 Chloride 103 Carbon Dioxide 29 Anion Gap 7.0 BUN 16 Creatinine 0.7 Estimated GFR (MDRD) 85 L Glucose 104 H Calcium 8.9 Magnesium 2.1 Total Bilirubin 0.9 AST 22 ALT 24 Alkaline Phosphatase 66 Total Protein 6.8 Albumin 4.0 Globulin 2.8 Albumin/Globulin Ratio 1.4 Lipase 40 SARS-CoV-2 (PCR) NOT DETECTED PD MEDICAL DECISION MAKING - ED course Complexity details: reviewed results, d/w patient, d/w family ED course: Patient 61-year-old female with known history neuro glioblastoma presenting to the emergency department after reported seizure event. On arrival to the emergency department appeared confused and disorientated but had a generally nonfocal nonlateralizing neurologic exam. Afebrile with no nuchal rigidity. Given her history did obtain a head CT which demonstrated vasogenic edema. Patient was given 10 mg dose Decadron. Follow-up MRI with and without contrast demonstrates area of ring enhancement near the right insula concerning for recurrent Neuro glioblastoma with surrounding edema. While in the emergency department patient's mental state cleared. She was reevaluated on multiple occasions and found to have no acute complaints and no focal or lateralizing neurologic deficits. Her care was discussed directly with the neurology and neuro-oncology team at the [facility]. In consultation with this service will initiate Keppra 1000 mg twice daily. Patient did report some significant sedation while on Keppra previously however after discussing options of an alternative agent she elected to try Keppra again. After discussion with the neuro-oncology team patient will be discharged for follow-up with her outpatient neuro oncologist tomorrow. Clear return precautions, seizure precautions and follow-up instructions given prior to discharge. - Consults Consults: Discussed case with (General inpatient neurology and neuro-oncology at the [facility]) Departure - Departure Disposition: 01 Home, Self Care Clinical Impression: Seizure, Brain tumor, Vasogenic edema Instructions: Epilepsy Meds, Epilepsy Safety During Seizure Prescriptions: Levetiracetam [Keppra] 1,000 mg PO BID #30 tablet Comments: Thank you for allowing us to care for you today at [facility]. Your prescription was sent electronically to [facility] in [place]. Today in the emergency department your evaluated for any possible life- threatening medical emergency. Your presentation and the history given is highly concerning for first-time seizure event. The CT scan performed showed vasogenic edema, also known as swelling of the brain. The MRI performed showed an area of ring-enhancing lesion that is highly concerning for recurrent neuro glioblastoma. I am glad that you are feeling well at this time. It is very reassuring that your neurologic exam has remained stable while in the emergency department. I did discuss your care directly with the on-call neurologist as well as the on- call neuro oncologist at the [facility]. At this time the recommendation of neuro oncology is to initiate antiepileptic medication, specifically the recommendation is for 1 g of Keppra twice daily. Your regular neuro oncologist has also been contacted and their team is expected to call you tomorrow in order to arrange for follow-up. In the interim it is very important that you do not drive, operate heavy machinery, swim unattended or otherwise engage in high risk activities until you are cleared by neurology and/or neuro-oncology. If it anytime you have any new or worsening symptoms, recurrent seizure events, or develop any focal or lateralizing weakness or numbness in your body it is important that you return to the emergency department immediately for reevaluation. Discharge Date/Time: 03/05/22 16:37
--- NOTE | 2022-03-05 08:03 | ED Physician Documentation ---
ED Addendum - Addendum Addendum: 03/05/22 08:01 I saw the patient initially after arrival to initiate basic orders pending change of shift. The patient was awake and conversant. She by description had a grand mal seizure in bed without any noted injury other than the tongue. Seizure lasted up to 5 minutes according to her and then stopped. She was confused and postictal by EMS and became alert on route. This is her first seizure. She had been feeling well otherwise last week without any cold or flu or dehydration or other issues. No new medications. She is status post brain surgery for neuro glioblastoma I believe 2 years ago and has had good follow-ups. No related seizure disorder. She is fully functional and activity. Will initiate a head CT as well as basic labs. Give some Toradol for pains. Better evaluate the tongue for injury. The oncoming ED physician will assume primary care.
--- NOTE | 2022-03-05 08:28 | CT Report ---
PROCEDURE: HEAD WO INDICATIONS: seizure new onset TECHNIQUE: Noncontrast 4.5 mm thick angled axial sections acquired from the foramen magnum to the vertex. For r adiation dose reduction, the following was used: automated exposure control, adjustment of mA and/or kV according to patient size. COMPARISON: None. FINDINGS: There is increased marie-white matter differentiation and some cortical hyperdensity involving the rig ht insular cortex and the adjacent frontal operculum as well as the right anterior temporal lobe exte nding superiorly into the right basal ganglia. Findings are presumably related to the provided histor y of an intracranial tumor, and may represent either vasogenic edema or treatment related gliotic jazz nge and atrophy. There is no definite acute intracranial hemorrhage. Basilar cisterns remain patent. No obvious ventricular effacement. IMPRESSION: Vasogenic edema versus gliosis in the right cerebral hemisphere as described above. No obvious mass, although no IV contrast was administered and the exam quality is limited. An MRI of the brain with IV contrast is recommended (provided there are no contraindications). Obtaining prior comparison studie s would also be helpful. Reviewed by: Sammy Monae MD on 03/05/2022 8:27 AM PDT Approved by: Sammy Monae MD on 03/05/2022 8:27 AM PDT Station ID: [id number]
[2022-03-05] MEDS ORDERED: DEXAMETHASONE 10 MG/ML VIAL IVP STA (09:08)
[2022-03-05] MEDS ORDERED: GADOBUTROL 7.5 MMOL/7.5 ML VIAL ONE (11:07)
[2022-03-05] MEDS ORDERED: diphenhydrAMINE INJ 50 MG/ML VIAL IVP STA (11:23)
[2022-03-05] MEDS ORDERED: FAMOTIDINE 20 MG TABLET PO STA (11:24)
--- NOTE | 2022-03-05 13:12 | MRI Report ---
PROCEDURE: MRI brain with and without contrast INDICATIONS: 61-year-old female with seizure and history of glioblastoma. Unknown treatment. CONTRAST: IV CONTRAST: Gadavist ml: 6 TECHNIQUE: Noncontrast axial T1 spin echo, axial T2 fast spin echo, sagittal and axial FLAIR, coronal T2 fast sp in echo, axial gradient echo, axial diffusion and ADC through the brain. After the administration of contrast, axial and coronal T1 spin echo with fat saturation through the brain. COMPARISON: CT brain 03/05/2022 FINDINGS: Image quality: Excellent. CSF spaces: Basal cisterns are patent. No extra-axial fluid collections. Ventricles are normal in size and shape. Brain: Lobular ring-enhancing subcortical mass lesions in the right subinsular white matter measure up to 1.4 cm it. Smaller adjacent daughter lesion measures 6 mm. There is vigorous surrounding vasoge moe edema present. No midline shift. Edema does across the midline through the anterior commissure th ere is a small 2 mm focus of old blood products noted anteriorly. Otherwise, the diffusion sequence shows no acute infarct. Normal vascular flow voids noted in the bas al cisterns. Skull and face: Right temporal craniotomy noted secured with round plates.. Orbits appear normal. Sinuses: Sinuses and mastoids appear clear. IMPRESSION: 1. Ring-enhancing lesions in the right subinsular white matter with surrounding vigorous vasogenic ed noel and/or tumor involvement as above. Given patient history, this is consistent with recurrent/resid ual glioblastoma. Correlate with history of treatment regimen and prior imaging. Reviewed by: Adis Ambriz MD on 03/05/2022 12:10 PM AKDT Approved by: Adis Ambriz MD on 03/05/2022 12:10 PM AKDT Station ID: [id number]
[2022-03-05] MEDS ORDERED: levETIRAcetam 250 MG TABLET PO STA ×2 (15:52→15:54)
[2022-03-05 16:01] VITALS: BP 124/98
[2022-03-05] MEDS ORDERED: GADOBUTROL 7.5 MMOL/7.5 ML VIAL IVP ONE (16:50)
== END 2022-03-05 16:37 | disposition home or self-care (01) ==
LOC: EDUNIT# → EDBD → ED 06:08
DX: R56.9 Unspecified convulsions (principal); R60.9 Edema, unspecified; D49.6 Neoplasm of unspecified behavior of brain; I48.91 Unspecified atrial fibrillation; Z20.822 Contact with and (suspected) exposure to COVID-19
CPT/HCPCS: 36415; 70450; 70553; 80053; 83690; 83735; 85025; 87635; 96361; 96374; 96375; 99283; A9270; A9585; J1200

== ENCOUNTER 2022-05-04 13:10 | Outpatient (CLI) | payer MEDICAID | END 2022-05-04 13:11 | disposition EMS.NT | LOC: EMS 13:10 | DX: Z03.89 Encounter for observation for other suspected diseases and conditions ruled out (principal) ==

== ENCOUNTER 2022-05-05 08:25 | Emergency (ER) | payer MEDICAID ==
--- OUTSIDE RECORDS SUMMARY | 2022-05-05 08:35 | EXTERNAL MEDICAL SUMMARY RPT | Continuity of Care Document ---
:1960 Author Organization [facility] Address [address] [place] [address] Phone Care Team Providers Name Role Phone Bam Patient RegistrarEster Unavailable Unavaila ble Allergies No information. Encounters No information. Functional Status No information. Immunizations No information. Medications No information. Problems No information. Procedures No information. Results/Labs No information. Social History date description facility [id number] Unknown if ever smoked All Vital Signs No information.
--- NOTE | 2022-05-05 09:25 | ED Physician Documentation ---
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 No: Sick contact, Unimmunized Improves by: No: Medication (cough medication OTC) Similar symptoms before: Has not had sx before Recently seen: Clinic (seen by her Oncologist and is on oral chemo for her tumor. Low dose steroids.) Review of Systems Constitutional: reports: Fever, Chills, Myalgias Nose: reports: Congestion. 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 ) Endocrine/Autoimmune: None GI: None RN ANTE PARTUM: Other () : None HEENT: None Psych: Depression, Anxiety Musculoskeletal: None Derm: None - Past Surgical History Past Surgical History: Yes Neuro: Craniotomy - Present Medications Home Medications: Ambulatory Orders Medication Instructions Recorded Confirmed Aspirin [Aspirin EC] 81 mg PO DAILY 01/04/21 01/04/21 LORazepam [Ativan] 0.5 mg PO DAILY PRN 01/04/21 01/04/21 Sulfamethox/Trimeth 800/160 1 tab PO MOWEFR 01/04/21 01/04/21 [Bactrim Ds] diltiaZEM [Cardizem] 30 mg PO QID 01/04/21 01/04/21 Levetiracetam [Keppra] 1,000 mg PO BID #30 tablet 03/05/22 Benzonatate [Tessalon] 100 mg PO TID PRN #20 cap 05/05/22 Oseltamivir [Tamiflu] 75 mg PO BID #10 cap 05/05/22 - Allergies Allergies/Adverse Reactions: Allergies Allergy/AdvReac Type Severity Reaction Status Date / Time codeine Allergy Unknown Verified 03/05/22 06:21 epinephrine Allergy Unknown Verified 05/05/22 09:06 morphine Allergy Itching Verified 05/05/22 09:06 - Social History Does the pt smoke?: No Smoking Status: Never smoker PD ED PE NORMAL - Vitals Vital signs reviewed: Yes - General General: Alert and oriented X 3, Well developed/nourished - HEENT HEENT: Ears normal, Moist mucous membranes, Pharynx benign - Neck Neck: Supple, no meningeal sign, No adenopathy - Cardiac Cardiac: No murmur. No: RRR (irregular and somewhat fast at 88-120 atrial fib. ) - Respiratory Respiratory: No respiratory distress, Clear bilaterally - Abdomen Abdomen: Soft, Non tender - Derm Derm: Normal color, Warm and dry, No rash - Extremities Extremities: Normal ROM s pain, No edema, No calf tenderness / cord - Neuro Neuro: Alert and oriented X 3, No motor deficit, Normal speech Results - Vitals Vitals: Vital Signs - 24 hr 05/05/22 05/05/22 05/05/22 08:59 10:21 11:05 Temperature 36.7 C Heart Rate 88 123 H 128 H Respiratory 18 26 H 22 Rate Blood Pressure 101/63 123/80 O2 Saturation 94 94 Oxygen O2 Source Room air - Labs Labs: Laboratory Tests 05/05/22 05/05/22 05/05/22 09:55 10:12 10:12 WBC 2.6 L RBC 3.51 L Hgb 12.5 Hct 35.5 L MCV 101.1 H MCH 35.6 H MCHC 35.2 RDW 13.1 Plt Count 114 L MPV 9.4 Neut # (Auto) 1.9 Lymph # (Auto) 0.3 L Beltrami # (Auto) 0.3 Eos # (Auto) 0.0 Baso # (Auto) 0.0 Absolute Nucleated RBC 0.00 Nucleated RBC % 0.0 Manual Slide Review Indicated RBC Morph Micro Appear 1+ ANISOCYTOSIS Sodium 138 Potassium 4.2 Chloride 104 Carbon Dioxide 24 Anion Gap 10.0 BUN 22 H Creatinine 0.6 Estimated GFR (MDRD) 101 Glucose 108 H Calcium 8.9 Total Bilirubin 1.0 AST 16 ALT 19 Alkaline Phosphatase 50 Total Protein 6.6 L Albumin 2.8 L Globulin 3.8 Albumin/Globulin Ratio 0.7 L Lipase 41 Nasal Adenovirus (PCR) NOT DETECTED Nasal B. parapertussis DNA (PCR) NOT DETECTED Nasal Coronavir 229E PCR NOT DETECTED Nasal Coronavir HKU1 PCR NOT DETECTED Nasal Coronavir NL63 PCR NOT DETECTED Nasal Coronavir OC43 PCR NOT DETECTED Nasal Enterovir/Rhinovir PCR NOT DETECTED Nasal Influenza A H3 PCR DETECTED A Nasal Influenza B PCR NOT DETECTED Nasal Parainfluen 1 PCR NOT DETECTED Nasal Parainfluen 2 PCR NOT DETECTED Nasal Parainfluen 3 PCR NOT DETECTED Nasal Parainfluen 4 PCR NOT DETECTED Nasal RSV (PCR) NOT DETECTED Nasal B.pertussis DNA PCR NOT DETECTED Nasal C.pneumoniae (PCR) NOT DETECTED Maximo Human Metapneumo PCR NOT DETECTED Nasal M.pneumoniae (PCR) NOT DETECTED Nasal SARS-CoV-2 (PCR) NOT DETECTED - Rads (name of study) chest xray Radiology: Prelim report reviewed (decreased lung volume and some atelectatic changes right lower vs developing infiltrate. ), See rad report PD MEDICAL DECISION MAKING - ED course Complexity details: reviewed results, re-evaluated patient (not much change in breathing nor cough after xopenex treatment 9chosen since in atrial fib to lessen tachycardic response).), considered differential (positive Influenza A. CXR showing more likely atelectasis right lower though some infiltrate possible. Even though is 4 days into illness, given her immunocompromise, shared decision to go with tamiflu anyway for some benefit.), d/w patient, d/w family (spouse) Departure - Departure Disposition: 01 Home, Self Care Clinical Impression: Influenza A Cough Qualifiers: Cough type: acute Qualified Code(s): R05.1 - Acute cough Dyspnea Qualifiers: Dyspnea type: shortness of breath Qualified Code(s): R06.02 - Shortness of breath Condition: Stable Record reviewed to determine appropriate education?: Yes Instructions: ED Flu Follow-Up: Jose Wilder MD [Primary Care Provider] - Prescriptions: Oseltamivir [Tamiflu] 75 mg PO BID #10 cap Benzonatate [Tessalon] 100 mg PO TID PRN #20 cap PRN Reason: Cough Comments: Your respiratory panel was positive for influenza A. Negative for COVID, RSV, parainfluenza, other common viruses. Even though you have had symptoms for more than 2 to 3 days, there may be still some benefit for you with the Tamiflu. You could take it twice daily for the next 5 days. He did not seem to have much improvement in your breathing or cough with the nebulizer so probably no value in an outpatient inhaler. Continue your other usual medicines. Add benzonatate as needed for cough. Stay well-hydrated. Follow-up with your primary care on Saturday or Saturday to report how well you are doing. Return to the ER if worsening symptoms overall. I transmitted prescriptions to [facility] pharmacy. Discharge Date/Time: 05/05/22 12:30
--- NOTE | 2022-05-05 09:36 | XRAY Report ---
PROCEDURE: Chest 1 View X-Ray INDICATIONS: Cough with SOA TECHNIQUE: One view of the chest was acquired. COMPARISON: 12/26/2020 FINDINGS: Surgical changes and devices: None. Lungs and pleura: No pleural effusions or pneumothorax. Lungs are clear other than mild basilar rig ht atelectasis. Low lung volumes accentuate pulmonary interstitium and heart size. Mediastinum: Mediastinal contours appear normal. Heart size is normal. Bones and chest wall: No suspicious bony lesions. Overlying soft tissues appear unremarkable. IMPRESSION: Minimal right basilar atelectasis and or infiltrate accentuated by low lung volumes Reviewed by: Adis Ambriz MD on 05/05/2022 8:34 AM [facility] Approved by: Adis Ambriz MD on 05/05/2022 8:34 AM [facility] Station ID: [id number]
[2022-05-05] MEDS ORDERED: diltiaZEM 30 MG TABLET PO STA (09:53)
[2022-05-05] MEDS ORDERED: LEVALBUTEROL 1.25 MG/3 ML NEB INH STA (09:53)
[2022-05-05 10:19] LABS: BASOPHILS % (AUTO) 0.8 %; HCT - HEMATOCRIT 35.5 % (37.0-47.0); HGB - HEMOGLOBIN 12.5 g/dL (12.0-16.0); LYMPHOCYTES # (AUTO) 0.3 10^3/uL (1.5-3.5); LYMPHOCYTES % (AUTO) 13.3 %; MEAN CORPUSCULAR HEMOGLOBIN 35.6 pg (27.0-31.0); MEAN CORPUSCULAR HGB CONC 35.2 g/dL (32.0-36.0); MEAN CORPUSCULAR VOLUME 101.1 fL (81.0-99.0); MEAN PLATELET VOLUME 9.4 fL (7.9-10.8); MONOCYTES # (AUTO) 0.3 10^3/uL (0.0-1.0); MONOCYTES % (AUTO) 11.7 %; NEUTROPHILS # (AUTO) 1.9 10^3/uL (1.5-6.6); PLT - PLATELET COUNT 114 10^3/uL (130-450); RED BLOOD COUNT 3.51 10^6/uL (4.20-5.40); RED CELL DISTRIBUTION WIDTH 13.1 % (12.0-15.0); WHITE BLOOD COUNT 2.6 x10^3/uL (4.8-10.8)
[2022-05-05 10:23] LABS: SLIDE REVIEW? Indicated
[2022-05-05 10:33] LABS: ALBUMIN 2.8 g/dL (3.2-5.5); ALBUMIN/GLOBULIN RATIO 0.7 (1.0-2.2); CALCIUM 8.9 mg/dL (8.5-10.3); CREATININE 0.6 mg/dL (0.4-1.0); POTASSIUM 4.2 mmol/L (3.5-5.0); TOTAL PROTEIN 6.6 g/dL (6.7-8.2)
[2022-05-05 10:44] LABS: RBC MORPHOLOGY (MULTIPLE) 1+ ANISOCYTOSIS (NORMAL)
[2022-05-05 10:55] LABS: B. PARAPERTUSSIS- RESP PCR PAN NOT DETECTED; B. PERTUSSIS- RESP PCR PANEL NOT DETECTED; C. PNEUMONIAE- RESP PCR PANEL NOT DETECTED; CORONAVIRUS 229E-RESP PCR NOT DETECTED; CORONAVIRUS HKU1-RESP PCR NOT DETECTED; CORONAVIRUS NL63-RESP PCR NOT DETECTED; CORONAVIRUS OC43-RESP PCR NOT DETECTED; HUMAN METAPNEUMOVIRUS NOT DETECTED; INFLUENZA A H3- RESP PCR PANEL DETECTED; INFLUENZA B - RESP PCR PANEL NOT DETECTED; M. PNEUMONIAE- RESP PCR PANEL NOT DETECTED; PARAINFLUENZA VIRUS 1 NOT DETECTED; PARAINFLUENZA VIRUS 2 NOT DETECTED; PARAINFLUENZA VIRUS 3 NOT DETECTED; PARAINFLUENZA VIRUS 4 NOT DETECTED; RHINOVIRUS/ENTEROVIRUS NOT DETECTED; RSV- RESP PCR PANEL NOT DETECTED; SARS-CoV-2 -RESP PCR PANEL NOT DETECTED
[2022-05-05 12:10] VITALS: BP 123/80
[2022-05-05] MEDS ORDERED: OSELTAMIVIR 75 MG CAPSULE PO STA (12:15)
[2022-05-05] MEDS ORDERED: BENZONATATE 100 MG CAPSULE PO STA (12:16)
== END 2022-05-05 12:30 | disposition home or self-care (01) ==
LOC: ED 08:25
DX: J10.1 Influenza due to other identified influenza virus with other respiratory manifestations (principal); Z20.822 Contact with and (suspected) exposure to COVID-19
CPT/HCPCS: 36415; 71045; 80053; 83690; 85025; 87633; 94640; 99283; 99284; A9270

== ENCOUNTER → 2022-05-16 | Outpatient (CLI) | payer MEDICAID | END | disposition critical access hospital (66) | LOC: EMS 15:34 | DX: R53.1 Weakness (principal); R42 Dizziness and giddiness; I95.9 Hypotension, unspecified; I48.91 Unspecified atrial fibrillation | CPT/HCPCS: A0425; A0427; A0999 ==

== ENCOUNTER → 2022-05-28 | Outpatient (CLI) | payer MEDICAID | END | disposition EMS.NT | LOC: EMS 06:13 | DX: R10.12 Left upper quadrant pain (principal) ==

== ENCOUNTER → 2022-05-28 | Outpatient (CLI) | payer MEDICAID | END | disposition short-term general hospital (02) | LOC: EMS 07:14 | DX: R55 Syncope and collapse (principal); R10.12 Left upper quadrant pain | CPT/HCPCS: A0425; A0427; A0999 ==

== ENCOUNTER 2022-06-07 09:20 | Outpatient (CLI) | payer MEDICAID | END 2022-06-07 09:21 | disposition short-term general hospital (02) | LOC: EMS 09:20 | DX: R55 Syncope and collapse (principal); R53.1 Weakness; R42 Dizziness and giddiness; R11.0 Nausea | CPT/HCPCS: A0425; A0427; A0999 ==

== ENCOUNTER 2022-06-25 15:50 | Outpatient (CLI) | payer MEDICAID | END 2022-06-25 15:51 | disposition EMS.NT | LOC: EMS 15:50 | DX: R53.1 Weakness (principal) ==